=== PATIENT | male | born 1970 | race Caucasian/White ===

== ENCOUNTER 2020-01-24 01:18 | Outpatient (CLI) | payer OTHER, SELFPAY ==
[2020-01-24 19:20] LABS: SARS-CoV-2 RNA PCR Negative
== END 2020-01-24 01:19 | disposition home or self-care (01) ==
LOC: ANHCOVIDDT 01:18
PROVIDERS: Visit Provider Internal Medicine Gastroenterology
DX: Z01.812 Encounter for preprocedural laboratory examination (principal); Z20.828 Contact with and (suspected) exposure to other viral communicable diseases
CPT/HCPCS: 87635; C9803; U0003

== ENCOUNTER 2020-01-26 01:54 | Day surgery (SDC) | payer OTHER, SELFPAY ==
[2020-01-18 14:25] VITALS: BMI 28.2
[2020-01-26 09:01] VITALS: BP 133/93; PULSE 74; RESP 18; TEMP 36.7; O2SAT 100; BMI 28.8
[2020-01-26] MEDS: LACTATED RINGERS 1,000 ML 150 ML IV CONT (09:08)
--- NOTE | 2020-01-26 09:09 | WPDANESEPPF ---
Anes - Initial Pre Proc Eval Procedure: Operation Date: 01/26/20 09:30 Proposed Procedures p Colonoscopy - Asa Felipe MD Date/Time: 01/26/20 09:09 Surgeon: Asa Felipe MD Pre Op Diagnosis: Blood In Stool Patient Data Age: 49 Gender: M Height: 2.01 m Weight: 116 kg Last Vital Signs Temp 36.7 C 01/26/20 09:01 Pulse 74 01/26/20 09:01 Resp 18 01/26/20 09:01 BP 133/93 H 01/26/20 09:01 Pulse Ox 100 01/26/20 09:01 Allergies Allergy/AdvReac Type Severity Reaction Status Date / Time No Known Allergies Allergy Verified 01/26/20 08:59 Home Medications Medication Instructions Recorded Confirmed Type peg 3350-electrolytes 236 240 ml PO Q10M #4000 ml 01/25/20 Rx gram-22.74 gram-6.74 gram-5.86 gram solution Patient hx anesthesia problems: none Family hx anesthesia problems: none PMFSH Past Medical History Medical History (Updated 01/26/20 @ 09:10 by Richard Hidalgo MD) Chronic right hip pain Hematochezia HLD (hyperlipidemia) Overweight (BMI 25.0-29.9) Wellness examination Family History Family History (Updated 01/11/14 @ 07:13 by DOCTOR UNKNOWN) Mother Hypertension Social History Social History Smoking status: Never smoker Alcohol intake: current Substance use: never Substance use type: does not use Living arrangements: with family Gender identity (if verbalized by the patient): Male Spiritual care concerns: No Anes - Eval Final PreProcedure Day of Procedure 01/26/20 09:09 Patient weight: overweight Heart: regular rate and rhythm Lungs: clear to auscultation and normal air movement Airway: Mallampati scale class II Neurological: alert and oriented Last oral intake: >/= 8 hours ASA classification: II Emergent: no Anesthetic plan: proceed Anesthesia type and monitoring: general GIVS Informed Consent: The patient's anesthetic plan and its attendant risks and benefits were discussed with the patient/family/POA. Questions were solicited and answers provided to the satisfaction of the patient/family/POA.
--- NOTE | 2020-01-26 09:30 | PM.HPGS ---
History of Present Illness History of Present Illness Consent: Risks, benefits, and alternatives have been discussed and questions answered. Patient agrees to proceed with procedure. Chief complaint: Blood In Stool Narrative: Fortunato Mendez is a 49 year old male with brbpr, never had a colonoscopy Review of Systems Constitutional: Constitutional: Denies headache(s) and Denies weakness Eyes: Eyes: Denies blurry vision ENT: Reports Normal hearing present, Denies headache(s) and Denies neck pain Cardiovascular: Cardiovascular: Denies chest pain and Denies dyspnea Respiratory: Respiratory: Denies dyspnea Gastrointestinal: Gastrointestinal: Reports no additional gastrointestinal complaints Genitourinary: Genitourinary: Denies dysuria Musculoskeletal: Musculoskeletal: Denies neck pain Integumentary/Breasts: Skin/Breast: Denies dry skin Neurologic: Reports Normal hearing present, Denies headache(s) and Denies weakness Psychiatric: Psychiatric: Denies anxiety Endocrine: Endocrine: Denies change in body appearance Hematologic/Lymphatic: Hematologic/Lymphatic: Denies easy bleeding Allergic/Immunologic: Allergic/Immunologic: Denies urticaria PMFSH Past Medical History Medical History (Updated 01/26/20 @ 09:10 by Richard Hidalgo MD) Chronic right hip pain Hematochezia HLD (hyperlipidemia) Overweight (BMI 25.0-29.9) Wellness examination Family History Family History (Updated 01/11/14 @ 07:13 by DOCTOR UNKNOWN) Mother Hypertension Social History Social History Smoking status: Never smoker Alcohol intake: current Substance use: never Substance use type: does not use Living arrangements: with family Gender identity (if verbalized by the patient): Male Spiritual care concerns: No Meds Home Medications and Allergies Home Medications Medication Instructions Recorded Confirmed Type peg 3350-electrolytes 236 240 ml PO Q10M #4000 ml 01/25/20 Rx gram-22.74 gram-6.74 gram-5.86 gram solution Allergies Allergy/AdvReac Type Severity Reaction Status Date / Time No Known Allergies Allergy Verified 01/26/20 08:59 Vital Signs Vital Signs - 24 hr 01/26/20 09:01 Temperature 98.1 F Pulse Rate 74 Respiratory Rate 18 Blood Pressure 133/93 H Pulse Oximetry 100 Exam Const: General: comfortable and no acute distress HENMT: General nose exam: Normal nares present Eyes: General: appearance normal, both eyes and all related structures Neck: Neck: no JVD Resp: Auscultation: clear to auscultation bilaterally Cardio: Rate: regular rate Rhythm: regular rhythm GI: Inspection: non-distended GI Palp: Yes Soft to palpation Skin: General skin exam: normal color Neuro: General: gait normal Speech: normal speech Extrem: General: normal to inspection Psych: Mental Status: mental status grossly normal Assessment and Plan Assessment and plan (1) Hematochezia: Code(s): K92.1 - Melena Status: Acute Assessment and Plan: will proceed with colonoscopy
[2020-01-26 09:53] VITALS: BP 127/69; PULSE 83; RESP 20; O2SAT 100
[2020-01-26 10:03] VITALS: BP 118/60; PULSE 60; RESP 16; O2SAT 100
[2020-01-26 10:13] VITALS: BP 111/79; PULSE 62; RESP 18; O2SAT 100
== END 2020-01-26 10:48 | disposition home or self-care (01) ==
PROVIDERS: PCP Family Medicine; Visit Provider Internal Medicine Gastroenterology
PROC: 0DJD8ZZ Inspection of Lower Intestinal Tract, Via Natural or Artificial Opening Endoscopic (ICD-10-PCS; CPT 45378; principal; 2020-01-26 09:30)
DX: K92.1 Melena (principal); K63.5 Polyp of colon; K64.8 Other hemorrhoids; E78.5 Hyperlipidemia, unspecified; E66.3 Overweight; Z68.28 Body mass index [BMI] 28.0-28.9, adult
CPT/HCPCS: 45385; 87635; 88305; C9803; J2704; J7120; U0003

== ENCOUNTER → 2022-01-26 06:56 | Outpatient (CLI) | payer OTHER, SELFPAY ==
--- NOTE | ~2022-01-26 | XR_ITS ---
EXAMINATION: XR tibia fibula LT 2V INDICATION: Left leg pain TECHNIQUE: Two views of the left tibia and fibula are obtained on four radiographs. COMPARISON: None available FINDINGS: There are chronic mid shaft deformities of the tibia and fibula, consistent with prior inju ry. Heterotopic soft tissue calcifications are seen lateral and anterior to the healed fibular fractu re. No acute osseous abnormality is identified. Alignment at the ankle and knee is normal. IMPRESSION: 1. Old healed fractures of the left tibia and fibula without acute osseous abnormality identified. Reviewed, dictated and finalized at location B. IMPRESSION: 1. Old healed fractures of the left tibia and fibula without acute osseous abno rmality identified.
== END ==
PROVIDERS: PCP Family Medicine; Visit Provider Family Medicine
DX: M79.605 Pain in left leg (principal)
CPT/HCPCS: 73590